=== PATIENT | female | born 1995 | race Caucasian/White ===

== ENCOUNTER 2017-08-01 15:04 | Emergency (ER) | payer SELFPAY ==
[~2017-08-01] VITALS: Ht 162.6 cm; Wt 70.5 kg
[2017-08-01] MEDS ORDERED: IBUPROFEN 400 MG TABLET PO ONE (17:15)
[2017-08-01 19:38] VITALS: BP 108/74
== END 2017-08-01 19:46 | disposition home or self-care (01) ==
LOC: EMS 15:05
DX: S33.5XXA Sprain of ligaments of lumbar spine, initial encounter (principal); Z88.1 Allergy status to other antibiotic agents; V89.2XXA Person injured in unspecified motor-vehicle accident, traffic, initial encounter; Y93.89 Activity, other specified; Y92.410 Unspecified street and highway as the place of occurrence of the external cause; Y99.8 Other external cause status
CPT/HCPCS: 72100; 99285